=== PATIENT | male | born 1990 | race Caucasian/White ===

== ENCOUNTER 2019-02-03 23:23 | Emergency (ER) | payer BC, SELFPAY ==
[2019-02-03 23:24] VITALS: BP 153/81; PULSE 81; RESP 16; TEMP 36.7; O2SAT 98; BMI 21.9
--- NOTE | 2019-02-03 23:36 | ED.RN ---
RT NOTIFIED OF NEED FOR EKG.
--- NOTE | 2019-02-03 23:48 | EKG12_ITS ---
Test Reason : Blood Pressure : / mmHG Vent. Rate : 070 BPM Atrial Rate : 070 BPM P-R Int : 132 ms QRS Dur : 086 ms QT Int : 380 ms P-R-T Axes : 022 067 050 degrees QTc Int : 410 ms Normal sinus rhythm Normal ECG Confirmed by TAMIR JOLLY, LISA ([id number]), magazine editor ROD SINCLAIR ([id number]) on 02/07/2019 10:33:06 AM Referred By: SHERICE Confirmed By:LISA GARNETT MD
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
[2019-02-04 00:33] LABS: Absolute Lymphocyte Count 1.93 X10^3/ul (0.83-4.51); Absolute Neutrophil Count 4.7 X10^3/uL (2.0-7.7); Basophil# 0.03 X10^3/uL; Basophil% 0.4 % (0-1); Eosinophil# 0.08 X10^3/uL; Eosinophils% 1.1 % (0-5); Hemoglobin 13.9 g/dl (13.0-16.5); Lymphocyte # 1.93 X10^3/ul (4.0); Mean Corp Hgb Conc 33.9 g/gl (32-36); Mean Corpuscular Hgb 30.9 pg (27.0-32.0); Mean Corpuscular Volume 91.1 fL (80-94); Mean Platelet Vol. 9.5 fl (6.2-12.0); Monocyte# 0.64 X10^3/uL; Monocyte% 8.6 % (0-10); Neutrophil # 4.74 X10^3/uL (2.7-7.7); Neutrophil % 63.8 % (47-70); Platelet Count 213 K/mm3 (150-450); RBC Distribution Width CV 12.6 % (11.6-14.6); RBC Distribution Width SD 41.2 fl (35.1-43.9); White Blood Count 7.4 K/mm3 (4.4-11.0)
[2019-02-04 00:37] LABS: POSITIVE COUNT NO; POSITIVE DIFFERENTIAL NO; POSITIVE MORPHOLOGY NO
[2019-02-04 01:00] LABS: Anion Gap 6 (5-15); BUN 21 mg/dL (7-18); BUN/Creat Ratio 23.2 RATIO (10-20); Calcium,Total 8.5 mg/dL (8.5-10.1); Chloride 103 mmol/L (98-107); Creatinine, Serum 0.91 mg/dL (0.70-1.30); EST Glomerular Filtration Rate 107 mL/min (>60); Est Glom Filt Rate - Afr Amer 129 mL/min (>60); Estimated Creatinine Clearance 126.73 ml/min; Glucose 118 mg/dL (74-106); Potassium 3.8 mmol/L (3.5-5.1); Sodium Level 137 mmol/L (136-145); Thyroid Stim Hormone (TSH) 0.92 uIU/mL (0.358-3.74)
--- NOTE | 2019-02-04 01:10 | ED.DEP ---
ED Disposition - Plan for ED Patient: Instructions: ED Palpitations Referrals: Vik Herrera III, MD [Primary Care Provider] -
[2019-02-04 01:26] VITALS: BP 127/83; PULSE 77; RESP 15; O2SAT 95
== END 2019-02-04 01:27 | disposition home or self-care (01) ==
PROVIDERS: Emergency Provider Emergency Medicine; Family Provider Family Medicine; PCP Family Medicine
DX: R00.2 Palpitations (principal)
CPT/HCPCS: 36415; 80048; 84443; 85025; 93005; 99283

== ENCOUNTER 2019-02-16 23:10 | Emergency (ER) | payer BC, SELFPAY ==
[2019-02-16 23:11] VITALS: BP 130/73; BP 141/77; PULSE 74; PULSE 77; RESP 18; TEMP 36.8; O2SAT 100; BMI 22.6
--- NOTE | 2019-02-16 23:43 | EKG12_ITS ---
Test Reason : CP Blood Pressure : / mmHG Vent. Rate : 073 BPM Atrial Rate : 073 BPM P-R Int : 138 ms QRS Dur : 090 ms QT Int : 354 ms P-R-T Axes : 009 062 061 degrees QTc Int : 389 ms Normal sinus rhythm Normal ECG Confirmed by ARIADNE CARUSO ([id number]), primer expeditor and drier PRISCA YO ([id number]) on 02/21/2019 2:11:43 PM Referred By: JERE Confirmed By:RCIHA CARUSO
--- NOTE | 2019-02-16 23:43 | RAD_ITS ---
HISTORY: Chest Pain EXAM:XR Chest 1 View portable COMPARISON: None FINDINGS: EKG leads in place. Normal heart and mediastinum. Both lungs appear clear. No vascular congestion, pleural effusion, or acute pulmonary infiltration. No pneumothorax. The bony thorax appears intact. RAD/Chest 1 View (Portable) IMPRESSION: Normal chest. at 0007 Reported and signed by: Jerry Jackson MD Electronically Signed: Jerry Jackson, at 0:06 EDT Tel , Service support ,
[2019-02-16 23:53] LABS: Absolute Lymphocyte Count 4.82 X10^3/ul (0.83-4.51); Absolute Neutrophil Count 5.7 X10^3/uL (2.0-7.7); Basophil# 0.04 X10^3/uL; Basophil% 0.3 % (0-1); Eosinophil# 0.19 X10^3/uL; Eosinophils% 1.6 % (0-5); Hematocrit 46.2 % (40-54); Hemoglobin 15.7 g/dl (13.0-16.5); Lymphocyte # 4.82 X10^3/ul (4.0); Lymphocyte % 41.6 % (19-41); Mean Corpuscular Hgb 31.2 pg (27.0-32.0); Mean Corpuscular Volume 91.8 fL (80-94); Mean Platelet Vol. 9.9 fl (6.2-12.0); Monocyte# 0.86 X10^3/uL; Monocyte% 7.4 % (0-10); Neutrophil # 5.65 X10^3/uL (2.7-7.7); Neutrophil % 48.9 % (47-70); Platelet Count 284 K/mm3 (150-450); RBC Distribution Width CV 12.5 % (11.6-14.6); RBC Distribution Width SD 41.9 fl (35.1-43.9); Red Blood Count 5.03 M/mm3 (4.6-6.2); White Blood Count 11.6 K/mm3 (4.4-11.0)
[2019-02-16 23:56] LABS: POSITIVE COUNT NO; POSITIVE DIFFERENTIAL NO; POSITIVE MORPHOLOGY NO
[2019-02-17 00:02] LABS: Prothrombin Time (Protime)PT. 13.2 SECONDS (11.7-14.9)
[2019-02-17 00:05] LABS: Anion Gap 5 (5-15); BUN 19 mg/dL (7-18); BUN/Creat Ratio 20.1 RATIO (10-20); Calcium,Total 9.1 mg/dL (8.5-10.1); Chloride 102 mmol/L (98-107); Creatinine, Serum 0.94 mg/dL (0.70-1.30); EST Glomerular Filtration Rate 102 mL/min (>60); Est Glom Filt Rate - Afr Amer 123 mL/min (>60); Estimated Creatinine Clearance 122.72 ml/min; Glucose 92 mg/dL (74-106); Potassium 3.8 mmol/L (3.5-5.1); Sodium Level 139 mmol/L (136-145)
[2019-02-17 00:36] LABS: D-Dimer Quantitative (DVT/PE) < 0.27 FEU/ug/m (0.27-0.49)
[2019-02-17 00:59] VITALS: BP 109/59; PULSE 65; RESP 16; O2SAT 98
[2019-02-17] MEDS: 0.9% Normal Saline 1,000 ML 1000 ML IV (01:00)
[2019-02-17] MEDS: LORazepam 2 MG/ML Syringe 0.5 MG IV (01:00)
[2019-02-17 01:01] VITALS: BP 113/62; PULSE 66; RESP 14; O2SAT 98
--- NOTE | 2019-02-17 01:39 | ED.DCSUM_ITS ---
- ER Visit Summary Date of Service: 02/17/19 Chief Complaint: Palpitations History of Present Illness: The patient is a 28 M reports a 2-1/2-week history of sensation that his heart is pounding very hard. He was seen here in the ER on the for the same. Labs and TSH were normal at that time. Patient was seen by his PCP approximately 5 days ago. He was started on metoprolol. Patient states he takes it every morning and has been taking a half a tab in the evening to help control his symptoms. Physical Examination: Vital signs are unremarkable. Heart rate is 74. Patient sitting upright in bed in no acute distress. He does appear anxious. Heart is regular rate and rhythm. Lung sounds are clear. Abdomen is soft nontender. Test Results: Work-up from the is reviewed. Chest x-ray tonight is unremarkable. EKG is sinus at 73 with no sign of acute ischemia. CBC was a white count 11.6 with normal differential. Chemistry studies unremarkable. Troponin less than 0.015. D-dimer less than 0.27. Emergency Department Course and Treatment: Patient was given a small dose of IV Ativan. On repeat evaluation he is resting comfortably. Heart rate is in the 60s. Patient states his symptoms are significantly improved. I voiced to him that I do believe he is having a pounding sensation in his heart, but then he is also having his anxiety flare which compounds his initial problem. He will be given a few tabs of Ativan to help with anxiety. He is to call his primary care physician tomorrow to discuss dosing of his metoprolol and possible further testing. Treatment Plan: [] Disposition: Discharge Impression: 1. Palpitations 2. Anxiety This note was generated with [employer] software. It may contain incorrect words, spelling, and punctuation that were not noted in review of the chart prior to signing ED Disposition - Plan for ED Patient: Disposition: Home or Assisted Living Instructions: ED Chest Pain Atypical Unkn Cause Prescriptions: Lorazepam [Ativan] 1 mg PO TID PRN #10 tablet PRN Reason: Anxiety Referrals: Vik Herrera III, MD [Primary Care Provider] - As soon as possible
[2019-02-17 01:41] VITALS: BP 112/67; PULSE 66; RESP 14; O2SAT 98
== END 2019-02-17 01:47 | disposition home or self-care (01) ==
PROVIDERS: Emergency Provider Emergency Medicine; Family Provider Family Medicine; PCP Family Medicine
DX: R00.2 Palpitations (principal); F41.9 Anxiety disorder, unspecified
CPT/HCPCS: 71045; 80048; 84484; 85025; 85379; 85610; 93005; 96361; 96374; 99285; J7030; A4216

== ENCOUNTER → 2019-03-07 13:55 | Outpatient (CLI) | payer BC, SELFPAY ==
[2019-02-16 23:11] VITALS: BMI 22.6
== END ==
LOC: PSN 13:56
PROVIDERS: Family Provider Nurse Practitioner; PCP Nurse Practitioner; Referring Provider Nurse Practitioner; Visit Provider Nurse Practitioner
DX: R00.2 Palpitations (principal)
CPT/HCPCS: 93225; 93226

== ENCOUNTER → 2021-03-06 10:11 | Outpatient (CLI) | payer BC, SELFPAY ==
--- NOTE | 2021-03-06 10:20 | RAD_ITS ---
STUDY: X-RAY - CERVICAL SPINE REASON FOR EXAM: Male, 30 years old. Radiculopathy, cervical region TECHNIQUE: 5 view(s) of the cervical spine were obtained. COMPARISON: None FINDINGS: Normal anterior atlantoaxial articulation. Normal odontoid process. There is straightening of the normal cervical lordosis. Normal vertebral bodies and endplates. Normal disc space heights. Normal visualized intervertebral neuroforamina. The soft tissue structures are unremarkable. RAD/Cerv Spine 4 or 5 Views IMPRESSION: Normal x-ray examination of the visualized cervical spine. Electronically Signed: Wilfredo Landon MD at 10:36 EDT , Service support ,
== END ==
PROVIDERS: PCP Nurse Practitioner; Referring Provider Chiropractor; Visit Provider Chiropractor
DX: M54.12 Radiculopathy, cervical region (principal)
CPT/HCPCS: 72050

== ENCOUNTER → 2021-04-01 15:37 | Outpatient (CLI) | payer BC, SELFPAY ==
--- NOTE | 2021-04-01 15:53 | RAD_ITS ---
STUDY: X-RAY - LEFT SHOULDER REASON FOR EXAM: Male, 30 years old. CERVICAL RADICULOPATHY,L SHOULDER STRAIN TECHNIQUE: 4 view(s) of the shoulder. COMPARISON: None. FINDINGS: No acute fracture, dislocation or osseous destruction. No significant joint space narrowing. No significant productive changes. No significant soft tissue swelling. Potential subtle rotator cuff calcific peritendinitis (only seen on one image). RAD/Shoulder min 2 Views IMPRESSION: Left shoulder intact Potential subtle calcific peritendinitis (only seen on one image) Electronically Signed: Pedro Stone DO at 9:44 EDT Tel , Service support ,
== END ==
PROVIDERS: PCP Nurse Practitioner; Referring Provider Chiropractor; Visit Provider Chiropractor
DX: M54.12 Radiculopathy, cervical region (principal); S43.492A Other sprain of left shoulder joint, initial encounter
CPT/HCPCS: 73030

== ENCOUNTER 2021-05-28 07:44 | Emergency (ER) | payer BC, SELFPAY ==
[2021-05-28 07:46] VITALS: BP 125/88; PULSE 97; RESP 18; TEMP 36.2; O2SAT 98; BMI 22.8
--- NOTE | 2021-05-28 07:58 | EX.ED.DYSGE1 ---
HPI History of Present Illness Chief Complaint: Other, Pain/Inj Detail of Chief Complaint: Neck pain that started initially 4 months ago Informant: patient Onset/Context/Timing Current Severity: Severe Narrative Narrative: Patient presents to the emergency department complaint of neck pain that started initially 4 months ago. He denies any trauma. Patient has seen Dr. Tarango for this and had an MRI about 4 days ago that showed a herniated disc in his neck. Patient has been on gabapentin as well as meloxicam and Flexeril and states that it had been controlling his pain relatively well until 2 days ago when he started having increasing pain. Patient states he has not slept in 2 days. Pain is worse with certain movements. He describes pain into the left shoulder and at times paresthesias of the left arm. He denies weakness of the extremities. Patient has a follow-up appointment with Dr. Tarango in 3 days. PFSH PFSH Home Medications metoprolol tartrate 25 mg PO DAILY 02/16/19 [History Last Taken Unknown] lorazepam 1 mg PO TID PRN #10 tablet 02/17/19 [Rx Last Taken Unknown] methylprednisolone [Methylpred DP] 4 mg PO .qd #21 tab 05/28/21 [Rx Last Taken Unknown] oxycodone-acetaminophen 1 tab PO Q6H PRN PRN 3 Days #12 tablet 05/28/21 [Rx Last Taken Unknown] Allergy/AdvReac Type Severity Reaction Status Date / Time FOOD COLORINGS AdvReac Other Uncoded 05/28/21 07:45 Social History Smoking Status: Never smoker ROS ROS ED Constitutional Constitutional ED: Reports systems reviewed and no addt'l complaints, except as documented; Denies body ache(s), change in weight or chills Eyes Eyes: Denies acute decrease in peripheral vision, change in vision, double vision or loss of vision ENT ENT ED: Reports none; Denies ear pain, lip swelling, loss taste/smell, neck pain, otalgia or sore throat Cardiovascular Cardiovascular: Reports none; Denies abdominal pain, chest pain with activity, leg edema, lightheadedness, palpitations, rapid heart rate or syncope Respiratory/Chest Respiratory/Chest: Reports none; Denies change in mental status, dry cough, dyspnea, hemoptysis, shortness of breath at rest or shortness of breath with exertion Gastrointestinal Gastrointestinal: Reports none; Denies abdominal pain, change in stool character, diarrhea, hematemesis, hematochezia, melena, rectal bleeding or vomiting Genitourinary Genitourinary ED: Reports none; Denies abdominal discomfort, anuria, dysuria, genital pain or polyuria Musculoskeletal Musculoskeletal: Reports none and neck pain; Denies arthralgias, back pain, difficulty walking, extremity pain, muscle weakness or myalgias Integumentary Reports none; Denies abscess or rash Neurologic Neurologic: Reports none; Denies abnormal gait, confusion, focal weakness, frequent falls, headache(s), loss of vision, numbness, paresthesias, radicular pain, vertigo or weakness Psychiatric Psychiatric: Reports systems reviewed and no addt'l complaints, except as documented and none; Denies behavioral changes, confusion, difficulty concentrating, hallucinations, suicidal ideation, tactile hallucinations or visual hallucinations Endocrine Endocrinology: Denies none, cold intolerance, excessive sweating, fatigue or heat intolerance Hematologic/Lymphatic Hematologic/Lymphatic: Reports none; Denies anemia, easy bleeding or easy bruising Allergic/Immunologic Allergic/Immunologic ED: Denies as per HPI, none, lip swelling, mouth swelling, throat swelling, tongue swelling or hives EXAM Physical Exam Const Vital Signs: 05/28/21 07:46 Temperature 97.1 F L Temperature Source Temporal Pulse Rate 97 Respiratory Rate 18 Blood Pressure 125/88 H Blood Pressure Mean 100 Pulse Ox 98 Oxygen Delivery Method Room Air Positive well nourished and well developed General Appearance ED: well developed and NAD HEENT Reports TM's clear and moist mucous membranes normocephalic and atraumatic; Negative for trauma or tenderness Tympanic Membrane ED: Yes TM's clear Eyes PERRL and EOMs intact bilaterally General Eye ED: Negative for pale conjunctiva or scleral icterus Neck no lymphadenopathy, supple and no JVD Neck Narrative: Patient has some tenderness palpation over the left cervical paraspinal musculature. No skin erythema or warmth noted. Patient has normal strength in both upper extremities. Patient has normal sensation. Deep tendon reflexes are plus 2 out of 4 bilaterally at the bicep, tricep, brachioradialis. General: tenderness Chest Wall inspection of chest normal and palpation of chest normal Chest: Negative for tenderness Resp normal respiratory effort and clear to auscultation bilaterally Effort and Inspection: Negative for respiratory distress or pain with movement Auscultation: Negative for rhonchi, wheezes or diminished lung sounds Cardio regular rate, regular rhythm, S1 normal heart sound, S2 normal heart sound and no murmurs Peripheral Pulses: pulses 2+ throughout GI normal to inspection, nondistended, normoactive bowel sounds, soft to palpation, non-tender, non-distended and no masses Back/Spine no CVA tenderness and no thoracic nor lumbar tenderness Extremity normal to inspection General Extremety ED: Negative for edema General Extremity: Negative for edema Neuro oriented x3, CN's II-XII intact bilaterally, no sensory deficits noted and gait normal Sensorium / Orientation: awake, alert, oriented to person, oriented to place and oriented to time Motor Exam: strength 5/5 throughout and strength abnormal Psych mental status grossly normal Skin no rashes or lesions noted and no wounds MDM MDM MDM Narrative Medical decision making narrative: Patient received Dilaudid 1 mg IM as well as Zofran 4 mg IM. He will be started on Percocet for pain and I will start him on a Medrol Dosepak which she has had in the past and has had good results with. Patient to keep his appointment in 3 days with his surgeon. Discharge Plan Triage Chief Complaint: Other, Pain/Inj ED Provider: Tj Burgos Dx/Rx/DC Orders Clinical Impression: Cervical radiculopathy Instructions: ED Neck Pain, ED Radiculopathy, Cervical Prescriptions: New oxycodone-acetaminophen [oxycodone-acetaminophen] 1 TABLET tablet 1 tab PO Q6H PRN PRN (Reason: Pain) 3 Days Qty: 12 RF: 0 methylprednisolone [Methylpred DP] 4 mg tablets,dose pack 4 mg PO .qd Qty: 21 RF: 0 No Action metoprolol tartrate 25 MG tablet 25 mg PO DAILY RF: 0 lorazepam 1 MG tablet 1 mg PO TID PRN (Reason: Anxiety) Qty: 10 RF: 0 Primary Care Provider: Josefa Martinez NP Referrals: Zen Tarango DO [STAFF PHYSICIAN] - 3-5 Days Josefa Martinez NP, TEXTILE PIN WORKER-C [Primary Care Provider] -
[2021-05-28] MEDS: Ondansetron 4 MG/2 ML Vial IM (08:08)
[2021-05-28] MEDS: HYDROmorphone 1 MG/ML Syringe IM (08:08)
[2021-05-28 08:32] VITALS: BP 133/92; PULSE 86; RESP 16; O2SAT 96
== END 2021-05-28 08:34 | disposition home or self-care (01) ==
LOC: ED 08:05
PROVIDERS: Emergency Provider Emergency Medicine; PCP Nurse Practitioner
DX: M54.12 Radiculopathy, cervical region (principal); Z79.52 Long term (current) use of systemic steroids
CPT/HCPCS: 99282; J2405

== ENCOUNTER 2023-01-11 09:18 | Emergency (ER) | payer MEDICAID, SELFPAY ==
[2023-01-11 09:19] VITALS: BP 130/88; PULSE 106; RESP 14; TEMP 36.1; O2SAT 97; BMI 23.3
--- NOTE | 2023-01-11 09:53 | EDS_ITS ---
HPI History of Present Illness Chief Complaint: Wound Detail of Chief Complaint: Sore on penis Informant: patient Onset/Context/Timing Onset: Weeks Narrative Narrative: Patient presents secondary to skin sores over his abdomen and penis. He states he shaved his chest and abdomen about 3 weeks ago. He developed multiple sores over his lower abdomen that do not seem to be healing. He is also now noted 1 on his penile shaft. No discharge from the area. He was seen at urgent care on Thursday and cultures were sent. He is currently on Bactrim. [facility] Medical History Bulging disc DDD (degenerative disc disease) Home Medications cephalexin 500 mg capsule 500 mg PO Q6 #40 CAPSULES 01/11/23 [Rx Last Taken Unknown] sulfamethoxazole 800 mg-trimethoprim 160 mg tablet 1 tab PO BID 01/11/23 [History Last Taken Unknown] Allergy/AdvReac Type Severity Reaction Status Date / Time FOOD COLORINGS AdvReac Other Uncoded 01/11/23 09:18 Social History Smoking Status: Never smoker ROS ROS ED Constitutional Constitutional ED: Denies chills or fever(s) Eyes Eyes: Denies change in vision or discharge from eye(s) ENT ENT ED: Denies discharge from eye(s), rhinorrhea or sore throat Cardiovascular Cardiovascular: Denies chest pain or palpitations Respiratory/Chest Respiratory/Chest: Denies cough or dyspnea Gastrointestinal Gastrointestinal: Denies abdominal pain, nausea or vomiting Genitourinary Genitourinary ED: Denies dysuria Musculoskeletal Musculoskeletal: Denies back pain or extremity pain Integumentary Reports rash; Denies Abrasions Neurologic Neurologic: Denies headache(s) or weakness Psychiatric Psychiatric: Denies anxiety or depression Allergic/Immunologic Allergic/Immunologic ED: Denies lip swelling or urticaria EXAM Physical Exam Const Vital Signs: 01/11/23 09:19 Temperature 97 F L Temperature Source Temporal Pulse Rate 106 H Respiratory Rate 14 Blood Pressure 130/88 H Blood Pressure Mean 102 Pulse Ox 97 Oxygen Delivery Method Room Air Positive well nourished and well developed General Appearance ED: well developed HEENT Reports normocephalic and head/scalp atraumatic Eyes PERRL and EOMs intact bilaterally Neck supple Chest Wall inspection of chest normal and palpation of chest normal Resp normal respiratory effort and clear to auscultation bilaterally Cardio regular rate and regular rhythm GI non-tender Palpation: soft Extremity normal to inspection Neuro oriented x3 and no sensory deficits noted Sensorium / Orientation: alert Motor Exam: strength 5/5 throughout Psych mental status grossly normal Skin Skin Narrative: Multiple areas of superficial ulcerated skin noted over the lower abdomen and pelvis. This is all consistent with folliculitis and infection. He has a single round lesion noted on the lateral aspect of his penile shaft. No discharge or drainage from this lesion. No penile discharge. No lesions over the scrotum. MDM MDM MDM Narrative Medical decision making narrative: I discussed with the patient that his presentation and exam is all consistent with skin infection and not an STD. He is already on Bactrim but we will add Keflex for double coverage. Appropriate wound care is discussed. Discharge Plan Triage Chief Complaint: Wound ED Provider: Charito Comer Dx/Rx/DC Orders Clinical Impression: Folliculitis, Cellulitis Instructions: ED Cellulitis Prescriptions: New cephalexin 500 mg capsule 500 mg PO Q6 Qty: 40 0RF No Action sulfamethoxazole-trimethoprim 800-160 mg tablet 1 tab PO BID Primary Care Provider: Josefa Martinez GEOSPATIAL IMAGERY INTELLIGENCE ANALYST Referrals: Josefa Martinez GEOSPATIAL IMAGERY INTELLIGENCE ANALYST, GEOSPATIAL IMAGERY INTELLIGENCE ANALYST-C [Primary Care Provider] - 1 Week Disposition Disposition: Home, Self Care
[2023-01-11] MEDS: Cephalexin 250 MG Capsule 500 MG PO (10:17)
[2023-01-11 10:20] VITALS: RESP 18
== END 2023-01-11 10:21 | disposition home or self-care (01) ==
LOC: ED 10:05
PROVIDERS: Emergency Provider Emergency Medicine; PCP Nurse Practitioner; Visit Provider Emergency Medicine
DX: L03.90 Cellulitis, unspecified (principal); L73.9 Follicular disorder, unspecified
CPT/HCPCS: 99282

== ENCOUNTER 2024-08-22 16:39 | Emergency (ER) | payer SELFPAY ==
[2024-08-22 16:41] VITALS: BP 130/83; PULSE 134; RESP 18; TEMP 36.6; O2SAT 99; BMI 21.8
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
[2024-08-22] MEDS: Tetracaine 0.5% Ophthalmic Bottle 1 DRP OPHTHALMIC (17:37)
[2024-08-22] MEDS: Fluorescein 1 MG STRIP 1 STRIP OPHTHALMIC (17:37)
[2024-08-22] MEDS: Erythromycin Ophthalmic (NSY) 1 GM OPTH.TUBE 1 APPLIC LEFT EYE (18:39)
== END 2024-08-22 18:45 | disposition home or self-care (01) ==
PROVIDERS: Emergency Provider Emergency Medicine; PCP Nurse Practitioner; Visit Provider Emergency Medicine
DX: H10.9 Unspecified conjunctivitis (principal); H57.8A2 Foreign body sensation, left eye
CPT/HCPCS: 99285; J7040

== ENCOUNTER 2024-08-26 12:38 | Emergency (ER) | payer MEDICAID, SELFPAY ==
[2024-08-26 12:39] VITALS: BP 114/87; PULSE 100; RESP 20; TEMP 36.8; O2SAT 98; BMI 21.2
[2024-08-26] MEDS: metroNIDAZOLE 500 MG Tablet PO (13:31)
[2024-08-26] MEDS: Azithromycin 250 MG Tablet 1000 MG PO (13:31)
[2024-08-26 13:38] VITALS: BP 124/64; PULSE 78; RESP 16; TEMP 36.9; O2SAT 99
[2024-08-26] MEDS: Ceftriaxone 500 MG Vial IM (13:52)
[2024-08-26 14:43] LABS: HIV - WCH Non-Reactive (Nonreactive)
== END 2024-08-26 14:08 | disposition home or self-care (01) ==
PROVIDERS: Emergency Provider Emergency Medicine; Visit Provider Emergency Medicine
DX: H10.9 Unspecified conjunctivitis (principal); N34.2 Other urethritis; R30.0 Dysuria; Z86.19 Personal history of other infectious and parasitic diseases; Z11.3 Encounter for screening for infections with a predominantly sexual mode of transmission; Z72.51 High risk heterosexual behavior
CPT/HCPCS: 86703; 87491; 87591; 87661; 96372; 99283

== ENCOUNTER 2024-12-12 06:36 | Emergency (ER) | payer SELFPAY ==
[2024-12-12 06:38] VITALS: PULSE 122; RESP 16; TEMP 36.6; O2SAT 95; BMI 23.1
[2024-12-12] MEDS: Lidocaine 1% (20 ml mdv) 20 ML Vial 10 ML INFILT (07:21)
--- NOTE | 2024-12-12 07:21 | EX.ED.UPPERE ---
HPI History of Present Illness HPI Narrative: 34-year-old male no stated past medical history. Was moving a chair at home because a laceration to his left hand palmar aspect to the MCP of the left ring finger. He is right-hand dominant. Tetanus up-to-date. Chief Complaint: Laceration Informant: patient Occured/Mechanism Mechanism/Context: Yes injury Onset/Context/Timing Onset: Today Context: Sudden Onset Timing: Continuous Quality of Pain: Sharp Current Severity: Moderate Maximum Severity: Moderate Associated Symptoms Associated Symptoms: Negative for Parasthesia, Weakness or Loss of Funtion Narrative Narrative: 34-year-old male right hand dominant laceration palmar aspect left hand at the left ring finger MCP. Tetanus Immunization: 5-10 years Prior similar symptoms: No Recent Illness/Hospitalization: No PFSH PFSH Medical History DDD (degenerative disc disease) Bulging disc Home Medications ?Medication ?Instructions ?Recorded ?Last Taken ?Type NK 12/12/24 Unknown History Allergy/AdvReac Type Severity Reaction Status Date / Time orange (food color) AdvReac PT UNABLE Verified 12/12/24 06:37 TO RESPOND-NEEDS F/U red (food color) AdvReac PT UNABLE Verified 12/12/24 06:37 TO RESPOND-NEEDS F/U Family History no significant family his Social History Smoking Status: Never smoker alcohol intake: current alcohol intake frequency: a few times a month substance use type: marijuana ROS ROS ED ROS Narrative Denies recent illness. Constitutional Constitutional ED: Denies fever(s) Eyes Eyes: Denies blurry vision ENT ENT ED: Denies ear pain Cardiovascular Cardiovascular: Denies chest pain Respiratory/Chest Respiratory/Chest: Denies cough Gastrointestinal Gastrointestinal: Denies abdominal pain Genitourinary Genitourinary ED: Denies dysuria Musculoskeletal Musculoskeletal: Denies back pain Integumentary Denies abscess Neurologic Neurologic: Denies headache(s) Psychiatric Psychiatric: Denies anxiety Endocrine Endocrinology: Denies cold intolerance Hematologic/Lymphatic Hematologic/Lymphatic: Denies easy bleeding Allergic/Immunologic Allergic/Immunologic ED: Denies mouth swelling EXAM Physical Exam Narrative Exam Narrative: 4-year-old male no acute distress vital signs stable afebrile. H EENT exam unremarkable. Mytrex membranes. Neck nontender. Lungs clear to auscultation bilaterally. Heart regular rhythm no murmur rate about 110. Chest wall ribs nontender. Abdomen soft nontender. Moving all 4 extremities. Left hand he has it flexed there is a laceration along the MCP the palmar aspect of the left ring finger. There is also a laceration coming up into the ring finger itself on the proximal end palmar side. Normal touch sensation. Normal cap refill. No foreign body. Currently dried blood no active bleeding. Better exam will be obtained once I get it locally anesthetized. Const Vital Signs: 12/12/24 06:38 Temperature 98 F Temperature Source Oral Pulse Rate 122 H Respiratory Rate 16 Pulse Ox 95 Oxygen Delivery Method Room Air Positive well nourished and well developed; Negative for obese, cachectic, contractures or unkempt General Appearance ED: well developed; Negative for unkempt, cachectic or contractures Nutritional Appearance: Negative for cachectic or obese HEENT Reports moist mucous membranes normocephalic and atraumatic; Negative for trauma or tenderness Eyes PERRL and EOMs intact bilaterally Neck full ROM and supple General: Negative for tenderness Chest Wall inspection of chest normal and palpation of chest normal Resp normal respiratory effort and clear to auscultation bilaterally Cardio regular rate, regular rhythm, S1 normal heart sound, S2 normal heart sound and no murmurs Rate: Negative for bradycardia or tachycardic Rhythm: Negative for abnormal rhythm GI non-tender, non-distended and no masses Palpation: soft and tender; Negative for guarding or rebound tenderness present Back/Spine no CVA tenderness General Back: Negative for CVA tenderness Cervical Spine: Negative for cervical spine tenderness Thoracic Spine / Upper Back: Negative for thoracic spinal tenderness Lumbar Spine / Lower Back: Negative for lumbar spinal tenderness Extremity Negative for normal to inspection Extremity Narrative: Left hand palmar aspect MCP and proximal left ring finger laceration. Dried blood no active bleeding. Neurovascularly intact. General Extremety ED: Negative for edema General Extremity: Negative for edema Neuro oriented x3, CN's II-XII intact bilaterally, moves all extremities, no focal motor deficits and no sensory deficits noted Sensorium / Orientation: alert, oriented to person, oriented to place and oriented to time; Negative for orientation impaired, lethargic or stuporous Motor Exam: strength 5/5 throughout Psych mental status grossly normal Appearance: Negative for unkempt Mood & Affect: Negative for depressed, anxious or tearful Skin Rashes: no rashes Trauma: laceration Procedures Lacerations Left palm MCP of left ring finger laceration repair:: Length: 1.5 in Depth: Sub Q Shape: Linear Prep: Shure-Clens Laceration repair: Lidocaine, Local and Skin sutures Number of Sutures/Datil: 4 Suture Information: Ethilon, Simple and 4-0 Comment: Left palm proximal ring finger laceration approximately 1.5 inches. Linear. Bleeding. No foreign body. No infection. Full flexion extension. Locally anesthetized with lidocaine. Cleaned with Shur-Clens. Washed and irrigated with saline. Explored. Closed using 4 simple interrupted 4-0 Ethilon sutures. Proper hemostasis wound closure obtained. Discharge Plan Triage Chief Complaint: Laceration ED Provider: Eddy Wood Dx/Rx/DC Orders Clinical Impression: Hand laceration Instructions: ED Laceration Extremity Prescriptions: No Action NK Primary Care Provider: Care Physician,No Primary Referrals: Joey Jeffery MD [Med Staff - Active Staff] - Care Physician,No Primary [Primary Care Provider] - Activity Restrictions/Additional Instructions: Clean twice daily with soap and water. Apply antibiotic ointment. Motrin and Tylenol for any pain. Stitches out in 10 days. Any signs of infection such as pus, redness, swelling, streaks or fever return. Print Language: Bengali Disposition Disposition: Home, Self Care
[2024-12-12 08:19] VITALS: PULSE 122; RESP 16; TEMP 36.6; O2SAT 95
[2024-12-12 08:27] VITALS: BP 118/48; PULSE 66
== END 2024-12-12 08:27 | disposition home or self-care (01) ==
PROVIDERS: Emergency Provider Emergency Medicine; Visit Provider Emergency Medicine
DX: S61.215A Laceration without foreign body of left ring finger without damage to nail, initial encounter (principal); W26.8XXA Contact with other sharp object(s), not elsewhere classified, initial encounter
CPT/HCPCS: 12001; 99283

== ENCOUNTER 2024-12-23 18:59 | Emergency (ER) | payer SELFPAY ==
[2024-12-23 19:00] VITALS: BP 121/74; PULSE 109; RESP 15; TEMP 36.4; O2SAT 98; BMI 23.0
--- NOTE | 2024-12-23 21:49 | EX.ED.DYSGE1 ---
HPI History of Present Illness Chief Complaint: Suture Remv Informant: patient Narrative Narrative: Presents for suture removal left hand. [id number]. Cut on a chair 15 days ago. Was seen here in the ED. No fevers. States not much wound care at home. [facility] Medical History DDD (degenerative disc disease) Bulging disc Home Medications ?Medication ?Instructions ?Recorded ?Last Taken ?Type NK 12/12/24 Unknown History Allergy/AdvReac Type Severity Reaction Status Date / Time orange (food color) AdvReac PT UNABLE Verified 12/23/24 19:03 TO RESPOND-NEEDS F/U red (food color) AdvReac PT UNABLE Verified 12/23/24 19:03 TO RESPOND-NEEDS F/U Social History Smoking Status: Never smoker alcohol intake: current alcohol intake frequency: a few times a month substance use type: marijuana ROS ROS ED Constitutional Constitutional ED: Denies chills, fever(s) or sweats Gastrointestinal Gastrointestinal: Denies diarrhea, nausea or vomiting Musculoskeletal Musculoskeletal: Denies extremity pain Integumentary Reports wounds; Denies rash Neurologic Neurologic: Denies paresthesias or weakness EXAM Physical Exam Const Vital Signs: 12/23/24 19:00 Temperature 97.6 F L Temperature Source Temporal Pulse Rate 109 H Respiratory Rate 15 Blood Pressure 121/74 H Blood Pressure Mean 89 Pulse Ox 98 Oxygen Delivery Method Room Air Positive well nourished and well developed General Appearance ED: well developed and NAD HEENT Reports moist mucous membranes normocephalic and atraumatic Eyes General Eye ED: Yes normal appearance of both eyes Neck full ROM Chest Wall Chest: Negative for tenderness Resp normal respiratory effort and normal air movement Effort and Inspection: symmetric chest movement; Negative for respiratory distress Cardio regular rate, regular rhythm and no murmurs Peripheral Pulses: pulses 2+ throughout GI normal to inspection, nondistended, normoactive bowel sounds and non-tender Palpation: Negative for guarding or rebound tenderness present Extremity Extremity Narrative: Left hand: Proximal phalanx ring finger and crease of the MCP total of 4 sutures. There is callus formation. No redness no drainage. General Extremety ED: Negative for edema or tenderness General Extremity: Negative for edema Neuro oriented x3 and no sensory deficits noted Sensorium / Orientation: awake and alert Skin no rashes or lesions noted and no wounds MDM MDM MDM Narrative Medical decision making narrative: Interventions / MDM: Differential diagnosis: Wound check, suture removal. Diagnosis considered but do not suspect: No clinical infection My EKG interpretation: N/A Imaging independently reviewed and interpreted by myself: N/A External documents reviewed: ED visit for laceration total 4 sutures placed. Test considered but not ordered:N/A ED course: Wound with callus, no signs of infection. Total 4 sutures removed. Wound care discussed with the patient. Discussed no strenuous lifting with left hand avoid opening the wound. All questions were answered. Re-evaluation: stable Disposition discussed with patient/family/significant other: Patient Case discussed with consulting clinician: N/A This note was generated with [employer] dictation software. It may contain incorrect words, spelling, and punctuation that were not noted in checking the note before signing. Discharge Plan Triage Chief Complaint: Suture Remv ED Provider: Gabe Zaman Dx/Rx/DC Orders Clinical Impression: Visit for suture removal, Visit for wound check Instructions: Sutr or Stap Removal, ED Wound Check (No Infection) Prescriptions: No Action NK Primary Care Provider: Care Physician,No Primary Referrals: Care Physician,No Primary [Primary Care Provider] - Activity Restrictions/Additional Instructions: Her sutures were removed. Continue normal wound care. Print Language: Telugu Disposition Disposition: Home, Self Care
== END 2024-12-23 22:00 | disposition home or self-care (01) ==
LOC: ED 21:58
PROVIDERS: Emergency Provider Emergency Medicine; Referring Provider Emergency Medicine; Visit Provider Emergency Medicine
DX: Z48.02 Encounter for removal of sutures (principal)
CPT/HCPCS: 99282

== ENCOUNTER 2025-04-10 12:39 | Emergency (ER) | payer SELFPAY ==
[2025-04-10 12:39] VITALS: BP 141/115; PULSE 94; RESP 18; TEMP 36.4; O2SAT 97; BMI 24.7
--- NOTE | 2025-04-10 12:50 | RAD_ITS ---
PROCEDURE: SHOULDER MIN 2 VIEWS 04/10/2025 REASON FOR EXAM: PAIN INJURY TECHNIQUE: SHOULDER MIN 2 VIEWS COMPARISON: None FINDINGS: Bones: No fracture. Joints: Normal alignment of the acromioclavicular and glenohumeral joints. Soft tissues: Soft tissues are unremarkable. Other: RAD/Shoulder min 2 Views IMPRESSION: Unremarkable examination. Reading Location: [facility]
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
--- NOTE | 2025-04-10 16:09 | RAD_ITS ---
PROCEDURE: RIBS UNI MIN 3V W/PA CHEST 04/10/2025 REASON FOR EXAM: PAIN TECHNIQUE: RIBS UNI MIN 3V W/PA CHEST COMPARISON: Chest radiographs 02/16/2019, same date right shoulder radiographs FINDINGS: See below. RAD/Ribs Uni Min 3V w/PA Chest IMPRESSION: There is a mildly displaced fracture of the posterior right 6th rib. No pneumot horax identified. Reading Location: [facility]
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
--- NOTE | 2025-04-10 16:57 | ED.RN ---
pt not in room for xray. called pt and he will return to his room for xrays
[2025-04-10 18:18] VITALS: BP 127/74; PULSE 71; RESP 12; TEMP 36.8; O2SAT 99
== END 2025-04-10 18:20 | disposition home or self-care (01) ==
PROVIDERS: Emergency Provider Emergency Medicine; Visit Provider Emergency Medicine
DX: S22.31XA Fracture of one rib, right side, initial encounter for closed fracture (principal); V18.4XXA Pedal cycle driver injured in noncollision transport accident in traffic accident, initial encounter
CPT/HCPCS: 71101; 73030; 99282

== ENCOUNTER 2025-08-30 13:12 | Emergency (ER) | payer SELFPAY ==
[2025-08-30 13:15] VITALS: BP 115/78; PULSE 78; RESP 16; TEMP 36.6; O2SAT 99; BMI 25.7
--- NOTE | 2025-08-30 16:54 | EDS_ITS ---
HPI History of Present Illness Chief Complaint: Laceration Narrative Narrative: 34-year-old male who denies significant past medical history, [id number], presents with injury to his left thumb/webspace of his left hand that he sustained a few hours ago. He states that he was trying to sharpen a knife when it slipped and cut him in the webspace of his left hand between his 1st and 2nd digit. It is closer towards the base of his first digit. He is unsure of his last tetanus immunization thinks it may be greater than 10 years. He denies other injuries. He does not take blood thinners, he takes no medications. He presents with his father mainly because his father looked at it and felt that he needed suturing. Tetanus Immunization: Unknown PFSH PFS Medical History DDD (degenerative disc disease) Bulging disc Home Medications Medication Instructions Recorded Last Taken Type NK 12/12/24 Unknown History Allergy/AdvReac Type Severity Reaction Status Date / Time orange (food color) AdvReac PT UNABLE Verified 04/10/25 12:42 TO RESPOND-NEEDS F/U red (food color) AdvReac PT UNABLE Verified 04/10/25 12:42 TO RESPOND-NEEDS F/U Family History no significant family his Social History housing: apartment Smoking Status: Never smoker alcohol intake: current alcohol intake frequency: a few times a month substance use type: marijuana ROS ROS ED ROS Narrative Review of systems positive for 2.5 cm laceration the base of left thumb in the webspace between the 1st and 2nd digit of his left hand. Denies other injuries. Happened while was trying to sharpen a knife when the knife slipped. [id number]. Unsure of last tetanus immunization. EXAM Physical Exam Narrative Exam Narrative: Afebrile. Vital signs noted. Nontoxic-appearing. Focused examination of the left hand does reveal a 2 cm laceration in the webspace between his 1st and 2nd digit closer to the base of his left thumb. No active bleeding. Full range of motion of left thumb. Able to oppose. Const Vital Signs: 08/30/25 13:15 08/30/25 17:15 Temperature 98 F Temperature Source Oral Pulse Rate 78 69 Respiratory Rate 16 16 Blood Pressure 115/78 Blood Pressure Mean 90 Pulse Ox 99 98 Oxygen Delivery Method Room Air Room Air PROC Procedures Lacerations Left hand laceration: Length: 0.98 in Depth: Skin Shape: Linear Prep: Sterile Conditions Laceration repair: Lidocaine and Local Number of Sutures/Tenisha: 6 Suture Information: Ethilon and 4-0 Comment: Patient tolerated procedure well MDM MDM MDM Narrative Medical decision making narrative: I do not differential diagnosis is applicable. He has a 2.5 cm laceration in the webspace of his left hand between the 1st and 2nd digits. Tdap was ordered. He was given ibuprofen 600 mg orally for analgesia initially. This wound will be cleansed and lidocaine 1% will be used as a local anesthetic. See procedure note for details. He was told the risk of infection and scarring and acknowledges an understanding. See procedure note for detail. Patient was discharged to have sutures removed by primary care provider in 7 to 10 days or return to the emergency department. He was told to look for signs of infection. Return instructions were reviewed. Disposition is discharged home in stable condition. History & Record Review Discussion w/independent historian: Patient and Family (Father) Discharge Plan Triage Chief Complaint: Laceration ED Provider: Jose Alfredo Jansen Dx/Rx/DC Orders Clinical Impression: Laceration of hand, Need for Tdap vaccination Instructions: ED Hand Laceration- All Closures Prescriptions: No Action NK Primary Care Provider: Care Physician,No Primary Referrals: Steff Taylor MD [Med Staff - Slab Depiler Operator, [facility]] - 10 Day for suture removal Care Physician,No Primary [Primary Care Provider, Medical] Activity Restrictions/Additional Instructions: Have sutures removed by primary care provider in 7 to 10 days or return to the e mergency department. If you do return, you will be charged an ED visit co-pay however. Tylenol or ibuprofen as needed for pain return with drainage of pus from wound, redness around wound or red streaking up your arm, fever, new or worsening symptoms. Print Language: Mohawk Disposition Disposition: Home, Self Care
[2025-08-30 17:15] VITALS: PULSE 69; RESP 16; O2SAT 98
[2025-08-30] MEDS: Lidocaine 1% (20 ml mdv) 20 ML Vial INFILT (17:25)
[2025-08-30 18:09] VITALS: BP 115/78; PULSE 69; RESP 16; TEMP 36.6; O2SAT 98
== END 2025-08-30 18:16 | disposition home or self-care (01) ==
PROVIDERS: Emergency Provider Emergency Medicine; Visit Provider Emergency Medicine
DX: S61.412A Laceration without foreign body of left hand, initial encounter (principal); Z23 Encounter for immunization; W26.0XXA Contact with knife, initial encounter
CPT/HCPCS: 12001; 90471; 90715; 99284